=== PATIENT | female | born 1975 | race Caucasian/White ===

== ENCOUNTER 2016-06-04 14:27 | Emergency (ER) | payer MEDICAID ==
[~2016-06-04] VITALS: Ht 165.1 cm; Wt 81.5 kg
[2016-06-04 14:28] VITALS: BP 145/81
[2016-06-04] MEDS ORDERED: LEVO50 PO (14:40)
== END 2016-06-04 16:55 | disposition left against medical advice (07) ==
LOC: EMS 14:29
DX: R55 Syncope and collapse (principal); E03.9 Hypothyroidism, unspecified
CPT/HCPCS: 93005; 99283